=== PATIENT | female | born 1960 | race Caucasian/White ===

== ENCOUNTER → 2016-08-23 | Outpatient (REF) | payer OTHER ==
[2016-08-23 18:09] LABS: CALCIUM OXALATE CRYSTALS LARGE
== END ==
LOC: M SMT 16:46
PROVIDERS: ATTEND Nurse Practitioner Women's Health
DX: R31.9 Hematuria, unspecified (principal)

== ENCOUNTER → 2016-09-06 | Outpatient (CLI) | payer OTHER ==
[~2016-09-06] MED LIST: ISOVUE-370 76% 100ML VIAL (Q9967) As Ordered ONE
--- NOTE | 2016-09-07 05:27 | REP ---
Clinical: Hematuria. Technique: Axial precontrast, contrast enhanced, and delayed images of the abdomen and pelvis using 100 ml Isovue 370 intravenous contrast material with coronal and sagittal re-formations. Findings: The bilateral kidneys and ureters are normal in all phases of enhancement and without evidence for nephrolithiasis, hydroureteronephrosis, obstructing ureteral calculi, cyst or mass lesion. No perinephric fluid collections or stranding is appreciated. Evaluation of the bladder is grossly unremarkable. Liver, spleen, pancreas, gallbladder, bilateral adrenal glands are normal. The enteric system is without obstruction or acute inflammatory process. Normal terminal ileum and appendix are identified in the right lower quadrant. Pelvis demonstrates normal bladder and evidence for prior hysterectomy. No pelvic fluid or ascites. No intraperitoneal or retroperitoneal adenopathy. Abdominal aorta and branch vessels are without aneurysm or dissection. Surrounding musculoskeletal structures are intact. Lung bases are clear. Impression: Normal appearance to the urinary tract system. Evidence for prior hysterectomy. No acute intra-abdominal or pelvic pathology appreciated. Signed by Morris Eng MD 09/07/2016 05:18 A
== END ==
LOC: M RAD 12:45
PROVIDERS: ATTEND Nurse Practitioner Family
DX: R31.9 Hematuria, unspecified (principal)
CPT/HCPCS: 74178; Q9967